=== PATIENT | male | born 1985 | race Caucasian/White ===

== ENCOUNTER 2017-04-29 03:00 | Emergency (ER) | payer SELFPAY ==
[~2017-04-29] VITALS: Ht 177.8 cm; Wt 98.0 kg
[~2017-04-29 03:00] MED LIST: FLUO20SO3 PO; IBUP800T23 PO; SERO100T PO; VIVI380I
[2017-04-29 03:06] VITALS: BP 137/85; PULSE 99; RESP 16; TEMP 97.8; O2SAT 96
[2017-04-29] MEDS ORDERED: FLUO40CA PO ×2 (03:06→03:31)
[2017-04-29] MEDS ORDERED: FLUoxetine HCL 20 MG CAP PO ONE (03:30)
--- NOTE | 2017-04-29 03:37 | PD ---
HPI Chief Complaint: Medication Refill Request Time Seen by Provider: 03:25 Travel History International Travel<30 days: No Contact w/Intl Traveler<30days: No Traveled to known affect area: No History of Present Illness HPI 31-year-old male presents requesting medication refill. He reports a long- standing history of depression, prescribed fluoxetine 40 mg daily. He reports that he ran out of it 2 weeks ago secondary to insurance lapse. He reports over the past few days he has been feeling more anxious and depressed. He reports that he has been drinking alcohol more heavily as well. He denies any suicidal or homicidal ideation. He denies any illicit drug use. He does report that he has an appointment with a new psychiatrist on May 08 however until then he was hoping to get restarted on his fluoxetine. He has been on it on a stable dose for 5 years. He has no other complaints at this time. PFS Past Medical History Anxiety: Yes Depression: Yes Cancer: No Cardiovascular Problems: No Diabetes: No Diminished Hearing: No Headaches: No Psychiatric: Yes (see below ) Immunizations Current: Yes Seizures: No Past Surgical History Surgical History: No Previous Surgery Social History Alcohol Use: Yes (ETOH ABUSE ) Tobacco Use: No Substance Use: Yes (HX CRACK COCAINE USE) Allergies-Medications (Allergen,Severity, Reaction): Coded Allergies: diphenhydramine (Unverified Allergy, Severe, Swelling, 04/29/17) Reported Meds & Prescriptions Reported Meds & Active Scripts Active Fluoxetine (Fluoxetine HCl) 40 Mg Cap 40 Cap PO DAILY Reported Fluoxetine (Fluoxetine HCl) 40 Mg Cap 40 Cap PO DAILY Review of Systems Except as stated in HPI: all other systems reviewed are Neg Physical Exam Narrative GENERAL: Pleasant well-developed well-nourished male in no acute distress SKIN: Warm and dry. HEAD: Atraumatic. Normocephalic. EYES: Pupils equal and round. No scleral icterus. No injection or drainage. ENT: No nasal bleeding or discharge. Mucous membranes pink and moist. NECK: Trachea midline. No JVD. CARDIOVASCULAR: Regular rate and rhythm. No murmur appreciated. RESPIRATORY: No accessory muscle use. Clear to auscultation. Breath sounds equal bilaterally. GASTROINTESTINAL: Abdomen soft, non-tender, nondistended. Hepatic and splenic margins not palpable. MUSCULOSKELETAL: No obvious deformities. No clubbing. No cyanosis. No edema. NEUROLOGICAL: Awake and alert. No obvious cranial nerve deficits. Motor grossly within normal limits. Normal speech. PSYCHIATRIC: Appropriate mood and affect; insight and judgment normal. Data Data Last Documented VS Vital Signs Date Time Temp Pulse Resp B/P (MAP) Pulse Ox O2 Delivery O2 Flow Rate FiO2 04/29/17 03:06 97.8 99 16 137/85 (102) 96 Room Air Orders Orders Fluoxetine (Prozac) (04/29/17 03:30) Ed Discharge Order (04/29/17 03:25) MDM Medical Decision Making Medical Screen Exam Complete: Yes Emergency Medical Condition: Yes Medical Record Reviewed: Yes Differential Diagnosis Major depressive disorder, depressive disorder not otherwise specified, medication refill, substance induced mood disorder Narrative Course The patient appears very psychiatrically stable. As the patient has been on fluoxetine 40 mg for 5 years, it is reasonable to give him a short refill until he can get established with a new psychiatrist on May 08. He understands that he return here at any time if he feels psychiatrically unstable. He is stable for discharge. Diagnosis Primary Impression: Medication refill Additional Instructions: As discussed, follow-up with your new psychiatrist for chronic medical maintenance and return for any acutely new or worsening symptoms. Med/Other Pt SpecificInfo: Prescription(s) given Scripts Fluoxetine (Fluoxetine) 40 Mg Cap 40 CAP PO DAILY, #30 CAP 0 Refills Prov: Nasreen Aguirre DO 04/29/17 Disposition: 01 DISCHARGE HOME Condition: Stable Miguelito Aguilar Apr 29, 2017 03:37
== END 2017-04-29 03:49 | disposition home or self-care (01) ==
LOC: NEPD 03:00
DX: Z76.0 Encounter for issue of repeat prescription (principal); F32.9 Major depressive disorder, single episode, unspecified; F41.9 Anxiety disorder, unspecified; F14.10 Cocaine abuse, uncomplicated; Z88.8 Allergy status to other drugs, medicaments and biological substances; Z79.899 Other long term (current) drug therapy
CPT/HCPCS: 99283